=== PATIENT | male | born 1985 | race American Indian/Alaskan Native ===

== ENCOUNTER 2017-09-26 14:17 | Emergency (ER) | payer MEDICARE ==
[2017-09-26] MEDS ORDERED: TESSALON PERLES PO ONE (16:19)
[2017-09-26] MEDS ORDERED: PROVENTIL IH ONE (16:20)
--- NOTE | 2017-09-26 16:46 | XRay Report ---
FINAL REPORT PROCEDURE: XR CHEST ROUTINE 2V TECHNIQUE: Two views of the chest are obtained HISTORY: cough with production COMPARISON: No prior studies are available for comparison. FINDINGS: The heart is normal in size. There is no focal infiltrate, pneumothorax or pleural effusion. IMPRESSION: No abnormalities are seen.
--- NOTE | 2017-09-26 17:33 | Emergency Department Report ---
ED Asthma HPI - General Chief Complaint: Adult Asthma Stated Complaint: WHEEZING Time Seen by Provider: 09/26/17 16:19 Source: patient Mode of arrival: Ambulatory Limitations: No Limitations - History of Present Illness Initial Comments: This is a 32-year-old male nontoxic, well nourished in appearance, no acute signs of distress presents to the ED with c/o of wheezing, productive cough, and rhinorrhea x3 days. Patient stated he was here 2 weeks ago and was diagnosed with upper resp infection and received prednisone with antibiotics which symptoms resolved. Patient stated he was in contact with her girlfriend that had similar symptoms and now symptoms has returned. Patient denies any chest pain, shortness of breathe, difficulty breathing, stiff neck, headache, numbness, tingling, fever, chills, hemoptysis. Patient states allergies to clarithromycin. PMH includes asthema. MD Complaint: "asthma attack", wheezing, other (productive cough, rhinorrhea, ) -: Gradual, days(s) (3) Asthma History: childhood onset, history of frequent attac Severity: mild Context: recent URI Associated Symptoms: productive cough. denies: dry cough, fever, chest pain, hemoptysis, leg edema, syncope Treatments Prior to Arrival: inhaled bronchodilator - Related Data Current Asthma Therapy: none Previous Rx's Medication Instructions Recorded Last Taken Type Acetamin/Codeine 120-12Mg/5 ml 5 ml PO TID PRN #10 dose 11/22/14 Unknown Rx [Tylenol/Codeine] Benzonatate [Tessalon Perles] 100 mg PO Q8HR #14 capsule 11/22/14 Unknown Rx Penicillin Vk [Veetids TAB] 500 mg PO BID #20 tablet 11/22/14 Unknown Rx Promethazine /Codeine 5 ml PO Q6H PRN #120 ml 11/26/14 Unknown Rx [Phenergan/Codeine 6.25-10 mg/5 ml] predniSONE [Deltasone] 20 mg PO TID #15 tab 11/26/14 Unknown Rx Albuterol Sulfate [Ventolin HFA] 2 puff IH Q4H PRN #1 hfa.aer.ad 10/14/16 Unknown Rx predniSONE [Deltasone] 50 mg PO QAM #5 tablet 10/14/16 Unknown Rx ALBUTEROL Inhaler [ProAir HFA 2 puff IH QID PRN #1 inhalation 09/05/17 Unknown Rx Inhaler] Levofloxacin [Levaquin] 750 mg PO QDAY #4 tablet 09/05/17 Unknown Rx Phenylephrine/Dm/Acetaminop/GG 10 ml PO Q6H PRN #1 bottle 09/05/17 Unknown Rx [Mucinex Vlpu-Clp-Dinmueamik Lq] predniSONE [Deltasone] 40 mg PO QDAY #10 tab 09/05/17 Unknown Rx ALBUTEROL Inhaler [ProAir HFA 2 puff IH QID PRN #1 inhalation 09/26/17 Unknown Rx Inhaler] Amoxicillin/K Clav [Augmentin 500 1 tab PO BID #20 tablet 09/26/17 Unknown Rx mg] predniSONE [Deltasone] 40 mg PO QDAY #10 tab 09/26/17 Unknown Rx Allergies Allergy/AdvReac Type Severity Reaction Status Date / Time clarithromycin [From Biaxin] Allergy Hives Verified 11/22/14 12:43 ED Review of Systems ROS: Stated complaint: WHEEZING Other details as noted in HPI Constitutional: denies: chills, fever Eyes: denies: eye pain, eye discharge, vision change ENT: denies: ear pain, throat pain Respiratory: cough, wheezing. denies: shortness of breath Cardiovascular: denies: chest pain, palpitations Endocrine: no symptoms reported Gastrointestinal: denies: abdominal pain, nausea, diarrhea Genitourinary: denies: urgency, dysuria Musculoskeletal: denies: back pain, joint swelling, arthralgia Skin: denies: rash, lesions Neurological: denies: headache, weakness, paresthesias Psychiatric: denies: anxiety, depression Hematological/Lymphatic: denies: easy bleeding, easy bruising ED Past Medical Hx - Past Medical History Hx Asthma: Yes - Social History Smoking Status: Current Every Day Smoker Substance Use Type: Alcohol - Medications Home Medications: Home Medications Medication Instructions Recorded Confirmed Last Taken Type Acetamin/Codeine 120-12Mg/5 ml 5 ml PO TID PRN #10 dose 11/22/14 Unknown Rx [Tylenol/Codeine] Benzonatate [Tessalon Perles] 100 mg PO Q8HR #14 capsule 11/22/14 Unknown Rx Penicillin Vk [Veetids TAB] 500 mg PO BID #20 tablet 11/22/14 Unknown Rx Promethazine /Codeine 5 ml PO Q6H PRN #120 ml 11/26/14 Unknown Rx [Phenergan/Codeine 6.25-10 mg/5 ml] predniSONE [Deltasone] 20 mg PO TID #15 tab 11/26/14 Unknown Rx Albuterol Sulfate [Ventolin HFA] 2 puff IH Q4H PRN #1 hfa.aer.ad 10/14/16 Unknown Rx predniSONE [Deltasone] 50 mg PO QAM #5 tablet 10/14/16 Unknown Rx ALBUTEROL Inhaler [ProAir HFA 2 puff IH QID PRN #1 inhalation 09/05/17 Unknown Rx Inhaler] Levofloxacin [Levaquin] 750 mg PO QDAY #4 tablet 09/05/17 Unknown Rx Phenylephrine/Dm/Acetaminop/GG 10 ml PO Q6H PRN #1 bottle 09/05/17 Unknown Rx [Mucinex Onfu-Eir-Eyhogdtrju Lq] predniSONE [Deltasone] 40 mg PO QDAY #10 tab 09/05/17 Unknown Rx ALBUTEROL Inhaler [ProAir HFA 2 puff IH QID PRN #1 inhalation 09/26/17 Unknown Rx Inhaler] Amoxicillin/K Clav [Augmentin 500 1 tab PO BID #20 tablet 09/26/17 Unknown Rx mg] predniSONE [Deltasone] 40 mg PO QDAY #10 tab 09/26/17 Unknown Rx ED Physical Exam - General Limitations: No Limitations General appearance: alert, in no apparent distress - Head Head exam: Present: atraumatic, normocephalic, normal inspection - Eye Eye exam: Present: normal appearance, PERRL, EOMI. Absent: scleral icterus, conjunctival injection, nystagmus, periorbital swelling, periorbital tenderness Pupils: Present: normal accommodation - ENT ENT exam: Present: normal exam, normal orophraynx, mucous membranes moist, TM's normal bilaterally, normal external ear exam - Neck Neck exam: Present: normal inspection, full ROM. Absent: tenderness, meningismus, lymphadenopathy, thyromegaly - Respiratory Respiratory exam: Present: normal lung sounds bilaterally, wheezes (bilateral inspiratory and expiratory in Upper and lower lobe). Absent: respiratory distress, rales, rhonchi, stridor, chest wall tenderness, accessory muscle use, decreased breath sounds, prolonged expiratory - Cardiovascular Cardiovascular Exam: Present: regular rate, normal rhythm, normal heart sounds. Absent: irregular rhythm, systolic murmur, diastolic murmur, rubs, gallop - GI/Abdominal GI/Abdominal exam: Present: soft, normal bowel sounds. Absent: distended, tenderness, guarding, rebound, rigid, diminished bowel sounds - Rectal Rectal exam: Present: deferred - Extremities Exam Extremities exam: Present: normal inspection, full ROM, normal capillary refill. Absent: tenderness, pedal edema, joint swelling, calf tenderness - Back Exam Back exam: Present: normal inspection, full ROM. Absent: tenderness, CVA tenderness (R), CVA tenderness (L), muscle spasm, paraspinal tenderness, vertebral tenderness, rash noted - Neurological Exam Neurological exam: Present: alert, oriented X3, CN II-XII intact, normal gait, reflexes normal - Psychiatric Psychiatric exam: Present: normal affect, normal mood - Skin Skin exam: Present: warm, dry, intact, normal color. Absent: rash ED Course Vital Signs 09/26/17 09/26/17 09/26/17 14:30 16:31 16:45 Temperature 98.3 F Pulse Rate 94 H Pulse Rate [ 98 H 99 H Bilateral Upper Lobe] Respiratory 18 Rate Respiratory 20 18 Rate [Bilateral Upper Lobe] Blood Pressure 130/69 O2 Sat by Pulse 100 Oximetry - Reevaluation(s) Reevaluation #1: 09/26/17 17:42 Patient is speaking in full sentences with no signs of distress noted. Reevaluation #2: 09/26/17 17:42 Evaluation of lung sounds; post medical treatment in the ED there is no wheezing noted. Wheezing has subsided. ED Medical Decision Making - Medical Decision Making 32-year-old male that a presents with upper respiratory infection and asthma exacerbation. Patient is stable and was examined by me. X-ray has been obtained and dictated with radiologist with negative findings of any abnormalities. Patient received DuoNeb and Solu-Medrol in the knee which patient stated his symptoms has resolved and are improving. Post medical treatment there is no wheezing noted. Patient be treated with Augmentin, prednisone, and albuterol. Follow-up with a primary care doctor in 3-5 days or if symptoms worsen and continue return to emergency room as soon as possible. At time time of discharge, the patient does not seem toxic or ill in appearance. No acute signs of distress noted. Patient agrees to discharge treatment plan of care. No further questions noted by the patient. Critical care attestation.: If time is entered above; I have spent that time in minutes in the direct care of this critically ill patient, excluding procedure time. ED Disposition Clinical Impression: Upper respiratory infection Qualifiers: URI type: unspecified URI Qualified Code(s): J06.9 - Acute upper respiratory infection, unspecified Asthma exacerbation Qualifiers: Asthma severity: mild Asthma persistence: intermittent Qualified Code(s): J45.21 - Mild intermittent asthma with (acute) exacerbation Disposition: - TO HOME OR SELFCARE Is pt being admited?: No Does the pt Need Aspirin: No Condition: Stable Instructions: Asthma (ED), Upper Respiratory Infection (ED), Prednisone (By mouth), Albuterol (By breathing), Amoxicillin/Clavulanate Potassium (By mouth) Additional Instructions: Follow-up with a primary care doctor in 3-5 days or if symptoms worsen and continue return to emergency room as soon as possible. Prescriptions: ALBUTEROL Inhaler [ProAir HFA Inhaler] 2 puff IH QID PRN #1 inhalation PRN Reason: Shortness Of Breath Amoxicillin/K Clav [Augmentin 500 mg] 1 tab PO BID #20 tablet predniSONE [Deltasone] 40 mg PO QDAY #10 tab Referrals: PRIMARY CAREMD [Primary Care Provider] - 3-5 Days JOSE ALMAZAN MD [Staff Physician] - 3[facility] - [facility]5 Days [facility] [Outside] - 3-5 Days Forms: Work/School Release Form(ED)
[2017-09-26 18:00] VITALS: BP 138/72
== END 2017-09-26 17:59 | disposition home or self-care (01) ==
LOC: ED 14:17
DX: J45.21 Mild intermittent asthma with (acute) exacerbation (principal); J06.9 Acute upper respiratory infection, unspecified; F17.200 Nicotine dependence, unspecified, uncomplicated; Z88.1 Allergy status to other antibiotic agents
CPT/HCPCS: 71020; 94640; 96372; 99283; J2930

== ENCOUNTER 2018-12-22 06:43 | Emergency (ER) | payer BC, MEDICARE ==
[2018-12-22 07:20] VITALS: BP 142/81
[2018-12-22] MEDS ORDERED: TRIMOX PO ONE (07:28)
[2018-12-22] MEDS ORDERED: PROVENTIL IH ONE (07:28)
--- NOTE | 2018-12-22 07:29 | Emergency Department Report ---
Minor Respiratory - HPI Chief Complaint: Adult Asthma Stated Complaint: ASTHMA Time Seen by Provider: 12/22/18 07:28 Duration: 2 Days Pain Location: Throat, Chest Severity: mild Minor Respiratory: Yes Sore Throat, Yes Able to Tolerate Fluids, Yes Cough, No Rhinorrhea, No Ear Pain, No Sick Contacts, No Hemoptysis, No Chest Pain, No Shortness of Breath, No Fever Other History: Jayna is a 35-year-old male who comes to the ER today with acute exacerbation of his asthma. He is on no medications. He is coughing with clear sputum. He denies fever. He states he has not been taking his temperature at home. He is wheezing on admission ED Review of Systems ROS: Stated complaint: ASTHMA Other details as noted in HPI Comment: All other systems reviewed and negative Constitutional: denies: chills, fever Eyes: denies: eye pain ENT: as per HPI, throat pain Respiratory: see HPI, cough, wheezing ED Past Medical Hx - Past Medical History Hx Asthma: Yes - Social History Smoking Status: Never Smoker Substance Use Type: Alcohol - Medications Home Medications: Home Medications Medication Instructions Recorded Confirmed Last Taken Type Acetamin/Codeine 120-12Mg/5 ml 5 ml PO TID PRN #10 dose 11/22/14 Unknown Rx [Tylenol/Codeine] Benzonatate [Tessalon Perles] 100 mg PO Q8HR #14 capsule 11/22/14 Unknown Rx Penicillin Vk [Veetids TAB] 500 mg PO BID #20 tablet 11/22/14 Unknown Rx Promethazine /Codeine 5 ml PO Q6H PRN #120 ml 11/26/14 Unknown Rx [Phenergan/Codeine 6.25-10 mg/5 ml] predniSONE [Deltasone] 20 mg PO TID #15 tab 11/26/14 Unknown Rx Albuterol Sulfate [Ventolin HFA] 2 puff IH Q4H PRN #1 hfa.aer.ad 10/14/16 Unknown Rx predniSONE [Deltasone] 50 mg PO QAM #5 tablet 10/14/16 Unknown Rx ALBUTEROL Inhaler (OR & NICU) 2 puff IH QID PRN #1 inhalation 09/05/17 Unknown Rx [ProAir HFA Inhaler] Phenylephrine/Dm/Acetaminop/GG 10 ml PO Q6H PRN #1 bottle 09/05/17 Unknown Rx [Mucinex Vwei-Xap-Clfomgblaj Lq] levoFLOXacin [Levaquin] 750 mg PO QDAY #4 tablet 09/05/17 Unknown Rx predniSONE [Deltasone] 40 mg PO QDAY #10 tab 09/05/17 Unknown Rx ALBUTEROL Inhaler (OR & NICU) 2 puff IH QID PRN #1 inhalation 09/26/17 Unknown Rx [ProAir HFA Inhaler] Amoxicillin/K Clav [Augmentin 500 1 tab PO BID #20 tablet 09/26/17 Unknown Rx mg] predniSONE [Deltasone] 40 mg PO QDAY #10 tab 09/26/17 Unknown Rx Albuterol Sulfate [Ventolin HFA] 2 puff IH Q4H PRN #1 hfa.aer.ad 12/22/18 Unknown Rx Amoxicillin 500 mg PO BID #20 capsule 12/22/18 Unknown Rx Fluticasone [Flonase] 1 spray NS QDAY #1 bottle 12/22/18 Unknown Rx predniSONE [Deltasone] 20 mg PO DAILY #5 tablet 12/22/18 Unknown Rx Minor Respiratory Exam - Exam General: Vital signs noted. No distress. Alert and acting appropriately. HEENT: Yes Moist Mucous Membranes, No Pharyngeal Erythema, No Pharyngeal Exudates, No Rhinorrhea, No Conjuctival Injection, No Frontal Tenderness, No Maxillary Tenderness Ear: Neither TM Bulge, Neither TM Erythema, Neither EAC Pain, Neither EAC Discharge Neck: Yes Supple, No Adenopathy Lungs: Yes Good Air Exchange, Yes Wheezes, No Ronchi, No Stridor, No Cough, No Labored Respirations, No Retractions, No Use of Accessory Muscles, No Other Abnormal Lung Sounds Heart: Yes Regular, No Murmur Abdomen: Yes Normal Bowel Sounds, No Tenderness, No Peritoneal Signs Skin: No Rash, No Edema Neurologic: Alert and oriented, no deficits. Musculoskeletal: Unremarkable. ED Course Vital Signs 12/22/18 07:18 Temperature 99.1 F Pulse Rate 99 H Respiratory 20 Rate Blood Pressure 142/81 O2 Sat by Pulse 98 Oximetry ED Medical Decision Making - Medical Decision Making Pt is a known asthmatic. He is wheezing on admission. Denies fever. He does have a cough. No increased work of breathing. Nontoxic. Ambulatory. No fever. DuoNeb in the ER with improvement. DC home with outpatient follow-up Critical care attestation.: If time is entered above; I have spent that time in minutes in the direct care of this critically ill patient, excluding procedure time. ED Disposition Clinical Impression: Asthma with acute exacerbation Disposition: DC- TO HOME OR SELFCARE Is pt being admited?: No Does the pt Need Aspirin: No Condition: Stable Instructions: Asthma (ED) Prescriptions: Albuterol Sulfate [Ventolin HFA] 2 puff IH Q4H PRN #1 hfa.aer.ad PRN Reason: Shortness Of Breath Amoxicillin 500 mg PO BID #20 capsule Fluticasone [Flonase] 1 spray NS QDAY #1 bottle predniSONE [Deltasone] 20 mg PO DAILY #5 tablet Referrals: [facility] [Outside] - 3-5 Days Time of Disposition: 07:42
[2018-12-22] MEDS ORDERED: DELTASONE PO NR (08:00)
== END 2018-12-22 09:11 | disposition home or self-care (01) ==
LOC: ED 06:43
DX: J45.901 Unspecified asthma with (acute) exacerbation (principal)
CPT/HCPCS: 94640; 99282; J7512